=== PATIENT | male | born 1950 | race Caucasian/White ===

== ENCOUNTER 2022-01-31 08:23 | Day surgery (SDC) | payer MEDICARE ==
[2022-01-26 14:21] LABS: BASOPHILS % (AUTO) 0.4 % (0-1); CLARITY,URINE CLEAR (Clear); COLOR,URINE YELLOW (Yellow); EOSINOPHILS # (AUTO) 0.1 X10'3 (0-0.9); EOSINOPHILS % (AUTO) 0.7 % (0-6); GLUCOSE, URINE NEGATIVE (Neg); KETONES,URINE NEGATIVE (Neg); LEUKOCYTE ESTERASE ,URINE NEGATIVE (Neg); LYMPHOCYTES # (AUTO) 1.8 X10'3 (1.1-4.8); LYMPHOCYTES % (AUTO) 22.5 % (21-51); MEAN CORPUSCULAR HEMOGLOBIN 30.5 PG (27.0-31.0); MEAN CORPUSCULAR HGB CONC 33.4 g/dL (33.0-36.5); MEAN CORPUSCULAR VOLUME 91.3 FL (78-98); MEAN PLATELET VOLUME 7.2 FL (7.4-10.4); MONOCYTES # (AUTO) 0.8 X10'3 (0-0.9); NEUTROPHILS # (AUTO) 5.3 X10'3 (1.8-7.7); NEUTROPHILS % (AUTO) 66.4 % (42-75); NITRITES, URINE NEGATIVE (Neg); OCCULT BLOOD,URINE SMALL (Neg); PRE OP PLATELET COUNT 334 X10'3 (140-440); PROTEIN,URINE NEGATIVE (Neg); RED BLOOD COUNT 4.93 X10'6 (4.70-6.10); RED CELL DISTRIBUTION WIDTH 14.6 % (11.5-14.5); UROBILINOGEN,URINE 0.2 E.U/dL (0.2-1.0)
[2022-01-26 14:22] LABS: UA COLLECTION TYPE CLN CATCH MIDSTREAM
[2022-01-26 14:38] LABS: ALBUMIN 3.5 G/DL (3.4-5.0); ALKALINE PHOSPHATASE 63 IU/L (46-116); BLOOD UREA NITROGEN 22 MG/DL (7-18); BUN/CREATININE RATIO 24.7 (5.4-32.0); CALCIUM 8.8 MG/DL (8.5-10.1); CHLORIDE 101 MMOL/L (99-107); CREATININE 0.89 MG/DL (0.60-1.10); PRE OP ALT 28 U/L (30-65); PRE OP ANION GAP 8 (8-16); PRE OP AST 21 U/L (10-37); PRE OP BILIRUB, TOTAL 0.2 MG/DL (0.0-1.0); PRE OP GLUCOSE 135 MG/DL (70-104); PRE OP POTASSIUM 4.1 MMOL/L (3.4-5.1); PRE OP SODIUM 139 MMOL/L (135-145); TOTAL PROTEIN 7.1 G/DL (6.4-8.2); eGFR 84 ML/MIN
[2022-01-26 14:47] LABS: HYALINE CASTS 0-3 /LPF (NEGATIVE); MUCUS STRANDS MODERATE /LPF (Neg); SQUAMOUS EPITHELIAL CELL,UR FEW /LPF (FEW)
[2022-01-26 14:48] LABS: BACTERIA,URINE FEW /HPF (Neg); WBC,URINE 0-4 /HPF (0-4)
[2022-01-31] VITALS (9 sets, daily range): BP systolic 146–167; BP diastolic 74–97
[~2022-01-31] VITALS: Ht 180.3 cm; Wt 68.2 kg
[~2022-01-31 08:23] MED LIST: BUPIVAcaine/PF 2.5 mg/ml (0.25%) 30ml vial ONE; MULT-1085 PO; ceFAZolin inj. 2,000 MG in dextrose 5%-water 100 ML IV ONE; famotidine 20mg tablet PO ONE; ringers solution, lacted 1,000 ML IV SCH
[2022-01-31] MEDS ORDERED: sevoflurane 250ml liquid IH ONE (13:15)
[2022-01-31] MEDS ORDERED: fentaNYL/PF 50MCG/1 ML 2ML syringe ONE ×2 (13:16→13:45)
[2022-01-31] MEDS ORDERED: rocuronium 10mg/ml inj IV ONE (13:19)
[2022-01-31] MEDS ORDERED: LIDOcaine 2% (20mg/ml) 5ml vial ONE (13:19)
[2022-01-31] MEDS ORDERED: propofol inj 20 ML IV ONE (13:19)
[2022-01-31] MEDS ORDERED: neostigmine methylsulfate 1 MG/ML 10ml vial ONE (14:50)
[2022-01-31] MEDS ORDERED: glycopyrrolate 0.2mg/ml inj ONE (14:50)
[2022-01-31] MEDS ORDERED: ondansetron/PF 4mg/2ml inj ONE (14:50)
[2022-01-31] MEDS ORDERED: dexamethasone sod phosphate 4mg/ml inj. ONE (14:50)
[2022-01-31] MEDS ORDERED: hydrALAZINE 20mg/ml inj. IV ONE (14:50)
--- NOTE | 2022-01-31 14:52 | NUR ---
Received from OR via LONG , accompanied by Anesthesiologist ANNY and report given by Anesthesiolgist. PATIENT WITH 20G PIV IN LEFT UE RUNNING LR AT 100. PATIENT WITH 3 ABDOMINAL LAP SITES THAT ARE CDI. PATIENT DENIES PAIN. 10L MASK ON WITH 100% SATURATIONS. Addendum: 01/31/22 at 1507 by Benoit Devine RN, RN Amended: Links added.
[2022-01-31] MEDS ORDERED: HYDROmorphone/PF 0.2 MG/ML SYRINGE IV PRN ×2 (15:15)
[2022-01-31] MEDS ORDERED: ringers solution, lacted 1,000 ML IV SCH (15:15)
[2022-01-31] MEDS ORDERED: ondansetron/PF 4mg/2ml inj IV PRN (15:15)
[2022-01-31] MEDS ORDERED: morphine 2 MG/ML inj. syringe IV PRN (15:15)
--- NOTE | 2022-01-31 16:32 | NUR ---
ALL DISCHARGE CRITERIA HAS BEEN MET. VSS, PAIN AT A TOLERABLE LEVEL, VOIDING AND ABLE TO SAFELY AMBULATE AND TRANSFER SELF. IV TAKEN OUT WITHOUT ANY COMPLICATIONS. ALL DISCHARGE INSTRUCTIONS COVERED WITH PATIENT AND ALL QUESTIONS ANSWERED. PATIENT TAKEN OUT VIA WHEELCHAIR TO PERSONAL VEHICLE WHERE FAMILY/FRIEND DROVE PATIENT HOME. AFTER DISCUSSING CASE WITH MD BOJORQUEZ ORDERS TO SEND PATIENT HOME WERE OBTAINED. PATIENT VOIDED SMALL AMOUNT AND BLADDER SCAN REVEALS ONLY 75CC. STATES BECAUSE SPOUSE IS AN RN TO SEND PATIENT HOME WITH A STOREY CATHETER KIT. COMPLETELY OKAY WITH THESE ORDERS AND STATES THIS IS COMPLETELY FINE. CARE TURNED OVER TO . Addendum: 01/31/22 at 1659 by Benoit Devine RN RN Amended: Links added.
== END 2022-01-31 16:32 | disposition home or self-care (01) ==
LOC: PAS 08:23
PROVIDERS: ATTEND Surgery
DX: K40.90 Unilateral inguinal hernia, without obstruction or gangrene, not specified as recurrent (principal); Z79.899 Other long term (current) drug therapy; Z98.890 Other specified postprocedural states; Z87.891 Personal history of nicotine dependence; Z80.8 Family history of malignant neoplasm of other organs or systems; Z85.46 Personal history of malignant neoplasm of prostate
CPT/HCPCS: 36415; 49650; 80053; 81001; 82948; 85025; 87811; 93005; C1758; C1781; J0360; J0690; J1100; J2405; J2704; J2710; J3010; J3490; J7030; J7060; J7120; Z7506; Z7508; Z7512; A4215; A4357; A4618; A6449